=== PATIENT | female | born 1950 | race Caucasian/White ===

== ENCOUNTER 2019-05-10 06:00 | Outpatient (RCR) | payer MEDICARE, MEDICAID, SELFPAY | END 2019-05-19 23:59 | disposition home or self-care (01) | LOC: SPT 06:00 | PROVIDERS: Family Provider Family Medicine; PCP Internal Medicine; Referring Provider Family Medicine; Visit Provider Family Medicine | DX: M25.552 Pain in left hip (principal) | CPT/HCPCS: 97110; 97162 ==

== ENCOUNTER 2019-05-20 06:00 | Outpatient (RCR) | payer MEDICARE, MEDICAID, SELFPAY | END 2019-06-17 23:59 | disposition home or self-care (01) | LOC: SPT 06:00 | PROVIDERS: Family Provider Family Medicine; PCP Internal Medicine; Referring Provider Family Medicine; Visit Provider Family Medicine | DX: M25.552 Pain in left hip (principal) | CPT/HCPCS: 97110 ==

== ENCOUNTER 2020-02-19 14:25 | Outpatient (CLI) | payer MEDICARE, MEDICAID, SELFPAY ==
--- NOTE | 2020-02-19 14:42 | XR_ITS ---
WS: [id number] DEXA (DUAL ENERGY X-RAY ABSORPTIOMETRY) Bone mineral density was performed using a Spotzot machine. HISTORY: ASYMPTOMATIC POSTMENOPAUSAL STATUS COMPARISON: None available. Lumbar spine BMD (L1-L4): 0.990 g/cm2 T score: -1.6 Z score: 0.3 Total hip BMD: Left: 0.903 g/cm2. T score: -0.8 Z score: 0.8 Right: 0.890 g/cm2. T score: -0.9 Z score: 0.7 10 year probability of a major osteoporotic fracture is 11%. XR/XR DEXA axial skeleton* [id number] IMPRESSION: OSTEOPENIA based upon the WHO classification for females.
== END 2020-02-19 14:26 | disposition home or self-care (01) ==
LOC: RADWPI 14:30
PROVIDERS: PCP Internal Medicine; Visit Provider Internal Medicine
DX: Z78.0 Asymptomatic menopausal state (principal); M85.89 Other specified disorders of bone density and structure, multiple sites
CPT/HCPCS: 77080

== ENCOUNTER 2020-03-04 14:11 | Outpatient (CLI) | payer MEDICARE, MEDICAID, SELFPAY | END 2020-03-04 14:12 | disposition home or self-care (01) | LOC: SPT 14:13 | PROVIDERS: PCP Internal Medicine; Visit Provider Podiatrist Foot & Ankle Surgery | DX: Z98.890 Other specified postprocedural states (principal); M25.80 Other specified joint disorders, unspecified joint | CPT/HCPCS: 97760; L3030 ==

== ENCOUNTER 2020-03-22 14:08 | Outpatient (CLI) | payer MEDICARE, MEDICAID, SELFPAY ==
--- NOTE | 2020-03-22 14:14 | MM_ITS ---
WS: [id number] BILATERAL DIGITAL SCREENING MAMMOGRAPHY WITH CAD CLINICAL INFORMATION: SCREENING HISTORY: Screening mammogram. No current complaints. COMPARISON: March 22, 2019 TECHNIQUE: Bilateral CC and MLO views. FINDINGS: Scattered fibroglandular densities bilaterally. No suspicious focal mass, asymmetry, calcifications, or architectural distortion. No evidence of malignancy. Punctate calcifications right breast MM/[place] [id number] IMPRESSION: BI-RADS: 2-Benign FOLLOW UP: 1 Year Follow-up Recommend return to annual screening mammography.
== END 2020-03-22 14:09 | disposition home or self-care (01) ==
LOC: RADSHAW 14:12
PROVIDERS: PCP Internal Medicine; Visit Provider Internal Medicine
DX: Z12.31 Encounter for screening mammogram for malignant neoplasm of breast (principal)
CPT/HCPCS: 77067

== ENCOUNTER → 2021-03-03 14:27 | Outpatient (BNVA) | payer MEDICARE, MEDICAID, SELFPAY | PROVIDERS: PCP Internal Medicine; Visit Provider Surgery | DX: Z20.822 Contact with and (suspected) exposure to COVID-19 (principal); Z11.52 Encounter for screening for COVID-19 | CPT/HCPCS: 87635 ==

== ENCOUNTER 2021-03-07 08:05 | Day surgery (SDC) | payer MEDICARE, MEDICAID, SELFPAY ==
[2021-03-05 15:18] VITALS: BMI 24.5
[2021-03-07] MEDS: sodium chloride 0.9% 1,000 ML 30 ML IV (08:30)
[2021-03-07 08:48] VITALS: BP 119/73; PULSE 61; RESP 18; TEMP -14.1; TEMP 6.6; O2SAT 97
--- NOTE | 2021-03-07 08:57 | ANES.PREANE2 ---
Pre-Anesthetic Assessment Pre-Anesthetic Assessment: Height/Weight: Height 1.55 m Weight 58.967 kg Preop Diagnosis: screening colonoscopy Proposed Procedure: Operation Date: 03/07/21 09:30 Proposed Procedures p Colonoscopy 62813 Z12.11(Not Applicable) - Williams Anand MD Was Beta Shankar taken within 24 hours: N/A Was Clonidine taken within 24 hours: N/A Social: Social History: No alcohol and No tobacco Exam: Pre-Anes Outpt Exam: alert, oriented x 3, clear to auscultation bilaterally and regular rate & rhythm Airway: Submandibular: WNL Cervical ROM: WNL MP: 2 Dentition: Full History/ROS: No significant history except as noted Anesthetic Plan: ASA status: 1 Anesthesia: MAC Risk of > 500 ml blood loss (7ml/kg in children): No PFSH Anesthesia PFSH: Surgical History (Updated 12/17/20 @ 10:18 by Williams Anand MD) History of appendectomy History of foot surgery Status post colonoscopy Social History Smoking and tobacco status: former smoker Household members: none Current occupational status: employed and retired Current occupation: Massage therapist- works occasionally Data Anesthesia Cardiac Studies: No Data to Display
--- NOTE | 2021-03-07 10:42 | P.HP_ITS ---
Same Day Surgery H&P Indication for Procedure/HPI DATE OF PROCEDURE: March 07, 2021 CHIEF COMPLAINT/INDICATIONFOR SURGICAL PROCEDURE: screening colonoscopy PREOP DIAGNOSIS: screening colonoscopy PLANNED PROCEDRUE: Operation Date: 03/07/21 09:30 Proposed Procedures p Colonoscopy 47057 Z12.11(Not Applicable) - Williams Anand MD Medications/Allergies* Home Medications Medication Instructions Recorded Confirmed Type No Known Home Medications 02/05/20 03/05/21 History Allergies/Adverse Reactions Allergy/AdvReac Type Severity Reaction Status Date / Time prednisone AdvReac unknown Verified 03/05/21 15:17 Pertinent History/Comorbid Conditions* Surgical History (Updated 12/17/20 @ 10:18 by Williams Anand MD) History of appendectomy History of foot surgery Status post colonoscopy Social History Smoking and tobacco status: former smoker Household members: none Current occupational status: employed and retired Current occupation: Massage therapist- works occasionally Pertinent Exam Findings alert, oriented x 3 and regular rate & rhythm Recommendations Surgery/Procedure today Coding Level of Care Code Acute Business Continuity Consultant for Janice Lezama
[2021-03-07 11:11] VITALS: BP 92/63; PULSE 72; RESP 18; TEMP 36.2; O2SAT 98
[2021-03-07 11:21] VITALS: BP 113/73; PULSE 75; RESP 18; O2SAT 99
--- NOTE | 2021-03-07 13:55 | ANE.PACU2 ---
Inpatient post-anesthesia follow up: Airway intact: Yes Vital signs: Temperature 97.1 F Pulse Rate 75 Respiratory Rate 18 Blood Pressure 113/73 Pulse Oximetry 99 Oxygen Delivery Me thod Room Air Oxygen Flow Rate Fraction of Inspir ed Oxygen Hydration adequate: Yes Nausea and vomiting: No Pain level: 1 Mental status: Baseline
== END 2021-03-07 11:50 | disposition home or self-care (01) ==
PROVIDERS: Visit Provider Surgery
PROC: 0DJD8ZZ Inspection of Lower Intestinal Tract, Via Natural or Artificial Opening Endoscopic (ICD-10-PCS; CPT 45378; principal; 2021-03-07 09:30)
DX: Z12.11 Encounter for screening for malignant neoplasm of colon (principal); K57.30 Diverticulosis of large intestine without perforation or abscess without bleeding; Z90.89 Acquired absence of other organs; Z87.891 Personal history of nicotine dependence
CPT/HCPCS: 96360; 96361; G0121; J2704; J7030

== ENCOUNTER → 2023-09-15 09:30 | Outpatient (BNVA) | payer MEDICARE, SELFPAY | PROVIDERS: PCP Family Medicine; Visit Provider Podiatrist Foot & Ankle Surgery | DX: M21.611 Bunion of right foot; M25.871 Other specified joint disorders, right ankle and foot | CPT/HCPCS: 73630; 99203 ==

== ENCOUNTER → 2023-09-28 10:42 | Outpatient (BNVA) | payer MEDICARE, SELFPAY | PROVIDERS: PCP Family Medicine; Referring Provider Family Medicine; Visit Provider Physician Assistant | DX: M25.511 Pain in right shoulder (principal); L57.0 Actinic keratosis; D22.22 Melanocytic nevi of left ear and external auricular canal; L72.0 Epidermal cyst; S80.862A Insect bite (nonvenomous), left lower leg, initial encounter; X58.XXXA Exposure to other specified factors, initial encounter; L60.3 Nail dystrophy; M19.011 Primary osteoarthritis, right shoulder; M75.41 Impingement syndrome of right shoulder | CPT/HCPCS: 17000; 73030; 99203 ==

== ENCOUNTER 2023-10-06 09:32 | Outpatient (RCR) | payer MEDICARE, SELFPAY | END 2023-10-17 23:59 | disposition home or self-care (01) | LOC: SPT 09:32 | PROVIDERS: Visit Provider Physician Assistant | DX: M75.41 Impingement syndrome of right shoulder (principal) | CPT/HCPCS: 97110; 97161 ==

== ENCOUNTER 2023-10-19 12:18 | Outpatient (RCR) | payer MEDICARE, SELFPAY | END 2023-11-17 23:59 | disposition home or self-care (01) | LOC: SPT 12:18 | PROVIDERS: PCP Family Medicine; Visit Provider Physician Assistant | DX: M75.41 Impingement syndrome of right shoulder (principal) | CPT/HCPCS: 97110 ==

== ENCOUNTER → 2023-11-11 13:21 | Outpatient (BNVA) | payer MEDICARE, SELFPAY | PROVIDERS: PCP Family Medicine; Visit Provider Physician Assistant | DX: M75.41 Impingement syndrome of right shoulder (principal); M19.011 Primary osteoarthritis, right shoulder | CPT/HCPCS: 99213 ==

== ENCOUNTER 2023-12-13 12:58 | Outpatient (CLI) | payer MEDICARE, SELFPAY ==
--- NOTE | 2023-12-13 13:00 | MR_ITS ---
WS: [id number] MRI RIGHT SHOULDER HISTORY: right shoulder pain COMPARISON: Radiographs 09/28/2023 TECHNIQUE: Multiplanar sequences of the shoulder joint are submitted. This study is significantly compromised by motion artifact on nearly all sequences. Severe AC joint arthropathy. Subchondral cyst in the distal clavicle. Fluid through the AC joint. Sub acromial impingement is marked. Biceps tendon is not identified in the bicipital groove. Biceps tendo n is displaced and is noted adjacent to the subscapularis tendon. No os acromion. Severe atrophy of the supraspinatus, infraspinatus and subscapularis muscles. Slightly less atrophy o f the teres minor. There is fluid extend along the rotator cuff tendons. There are complete rotator c uff tears with retraction to the medial humeral head. Teres minor may still be intact. Loss of cartil age surrounding the humeral head. Abnormal anterior labrum. Posterior labrum is probably also torn al so. MR/MR shoulder RT wo con* [id number] IMPRESSION: 1. Marked internal derangement RIGHT shoulder. 2. There is significant motion artifact on all sequences. 3. Severe AC joint arthropathy. 4. High riding humeral head with subacromial impingement. 5. Torn retracted supraspinatus, infraspinatus and subscapularis tendons at th e medial humeral head. 6. Displaced and/or torn and retracted biceps tendon. 7. Marked loss of cartilage in cortical irregularity of the humeral head. Oste ophytosis of the humeral head narrowing the glenohumeral joint. 8. Atrophy supraspinous, infraspinous and subscapularis muscles. 9. Suspect anterior and probable posterior labral tears.
== END 2023-12-13 12:59 | disposition home or self-care (01) ==
LOC: RAD 12:58
PROVIDERS: PCP Family Medicine; Visit Provider Physician Assistant
DX: M75.41 Impingement syndrome of right shoulder (principal); M19.011 Primary osteoarthritis, right shoulder; M85.611 Other cyst of bone, right shoulder; M62.511 Muscle wasting and atrophy, not elsewhere classified, right shoulder; M75.121 Complete rotator cuff tear or rupture of right shoulder, not specified as traumatic; M25.711 Osteophyte, right shoulder
CPT/HCPCS: 73221

== ENCOUNTER → 2023-12-24 10:01 | Outpatient (BNVA) | payer MEDICARE, SELFPAY | PROVIDERS: PCP Family Medicine; Visit Provider Student in an Organized Health Care Education/Training Program | DX: M12.811 Other specific arthropathies, not elsewhere classified, right shoulder | CPT/HCPCS: 99214 ==

== ENCOUNTER → 2024-05-12 09:14 | Outpatient (BNVA) | payer MEDICARE, SELFPAY | PROVIDERS: PCP Family Medicine; Visit Provider Nurse Practitioner Family | DX: L40.8 Other psoriasis (principal); L43.8 Other lichen planus; S00.501A Unspecified superficial injury of lip, initial encounter; X58.XXXA Exposure to other specified factors, initial encounter; L72.0 Epidermal cyst; D18.01 Hemangioma of skin and subcutaneous tissue; L30.9 Dermatitis, unspecified | CPT/HCPCS: 11102; 99214 ==

== ENCOUNTER → 2024-06-12 14:48 | Outpatient (BNVA) | payer MEDICARE, SELFPAY | PROVIDERS: PCP Family Medicine; Visit Provider Nurse Practitioner Family | DX: L40.8 Other psoriasis (principal); I78.8 Other diseases of capillaries; L82.0 Inflamed seborrheic keratosis; R20.8 Other disturbances of skin sensation | CPT/HCPCS: 17110; 99214 ==

== ENCOUNTER → 2024-11-06 13:20 | Outpatient (BNVA) | payer MEDICARE, MEDICAID, SELFPAY | PROVIDERS: PCP Family Medicine; Visit Provider Podiatrist Foot & Ankle Surgery | DX: M21.611 Bunion of right foot (principal); M25.871 Other specified joint disorders, right ankle and foot; L60.8 Other nail disorders | CPT/HCPCS: 73630; 99213 ==

== ENCOUNTER → 2024-11-13 10:14 | Outpatient (BNVA) | payer MEDICARE, MEDICAID, SELFPAY | PROVIDERS: PCP Family Medicine; Visit Provider Dermatology | DX: L92.0 Granuloma annulare (principal); L40.8 Other psoriasis; L82.0 Inflamed seborrheic keratosis; I78.8 Other diseases of capillaries; L72.0 Epidermal cyst; D18.01 Hemangioma of skin and subcutaneous tissue; L30.9 Dermatitis, unspecified | CPT/HCPCS: 11102; 99214 ==

== ENCOUNTER → 2025-02-14 15:22 | Outpatient (BNVA) | payer MEDICARE, MEDICAID, SELFPAY | PROVIDERS: PCP Family Medicine; Visit Provider Dermatology | DX: L92.0 Granuloma annulare (principal) | CPT/HCPCS: 99214 ==